=== PATIENT | male | born 1965 | race Caucasian/White ===

== ENCOUNTER 2016-12-22 22:32 | Emergency (ER) | payer SELFPAY ==
--- NOTE | 2016-12-26 19:20 | ER ---
ADMIT: 12/22/2016 RM/LOC: ER [facility] MR#: [id number] [address] [id number] DARIEL HAWTHORNE [address] [place] [id number] Emergency Room Report SEX: M AGE: 51 : 1965 DATE: 12/22/2016 HISTORY OF PRESENT ILLNESS: The patient is a 51-year-old male with a past medical history of alcohol abuse, came to the ER with chief complaint of stop drinking alcohol 4 hours ago after drinking half bottle of vodka and decided to detox. The patient denies any drug use or taking any congestion of any other medications. The patient states he is feeling that the anxiety and tremors are beginning if he does not take the detox meds. The patient states that previously he had multiple detox, but still he wants to try another detoxification. The patient complains of anxiety at the moment. The patient denies any trauma. PHYSICAL EXAMINATION: GENERAL: The patient was anxious and oriented to person, place, and time. No signs of trauma. HEAD and NECK: Normal. CHEST: Clear. HEART: Normal heart sounds. ABDOMEN: Soft. EXTREMITIES: No signs of trauma, with normal range of motion. EMERGENCY ROOM COURSE: The patient received 1 L of IV fluid normal saline with phenobarbital 520 mg IV over half an hour. The patient also received thiamine 100 mg p.o. and also 1 mg of folic acid p.o. The patient was re- examined and states that the anxiety and feeling of withdrawal were resolved. The patient was stable to be discharged to home to be followed up by primary doctor and was advised to cut or decrease alcohol use under the supervision of the primary doctor. The patient is stable to be discharged to home. Robe Rodríguez MD/ darshana JOB #: [id number] CC: Robe Rodríguez MD, Attending Physician Guille Llanes MD, Family Physician
== END 2016-12-23 02:30 | disposition home or self-care (01) ==
LOC: ER 22:32
DX: F10.10 Alcohol abuse, uncomplicated (principal); F17.210 Nicotine dependence, cigarettes, uncomplicated; Z88.0 Allergy status to penicillin